=== PATIENT | female | born 1990 ===

== ENCOUNTER 2021-08-27 21:08 | Emergency (ER) | payer SELFPAY ==
[2021-08-27 21:23] VITALS: BP 150/96
--- NOTE | 2021-08-28 10:17 | Electrocardiograph Report ---
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
== END 2021-08-28 00:38 | disposition left against medical advice (07) ==
LOC: ED 21:08
DX: R07.89 Other chest pain (principal); Z53.21 Procedure and treatment not carried out due to patient leaving prior to being seen by health care provider
CPT/HCPCS: 93005